=== PATIENT | female | born 1985 | race Two or more races ===

== ENCOUNTER 2025-05-19 13:27 | Emergency (ER) | payer OTHER ==
[~2025-05-19] VITALS: Ht 167.6 cm; Wt 75.7 kg
[2025-05-19] MEDS ORDERED: GUAIFENESIN 200 MG/10 ML BLIST.PACK PO ONE (14:00)
[2025-05-19] MEDS ORDERED: ACETAMINOPHEN 500 MG GEL..CAP PO ONE (14:00)
[2025-05-19 15:34] LABS: BASO % 0.3 % (0.1-1.2); EOS # 0.06 (0.04-0.54); HEMATOCRIT 34.4 % (34.1-44.9); HEMOGLOBIN 12.3 g/dL (11.2-15.7); LYMPH # 0.48 (1.18-3.74); LYMPH % 7.6 % (19.3-53.1); MEAN CORPUSCULAR HEMOGLOBIN 29.7 pg (25.6-32.2); MONO # 0.59 (0.24-0.82); MONO % 9.4 % (4.7-12.5); NEUT # 5.11 (1.56-6.13); NEUT % 81.4 % (34.0-71.1); PLATELET COUNT 202 K/uL (163-369); RED BLOOD COUNT 4.14 M/uL (3.93-5.22); RED CELL DISTRIBUTION WIDTH 12.5 % (11.6-14.4)
[2025-05-19 15:56] LABS: INFLUENZA A AG NEGATIVE (NEGATIVE); INFLUENZA B AG NEGATIVE (NEGATIVE)
[2025-05-19 16:03] LABS: COVID-19 AG POSITIVE (NEGATIVE)
[2025-05-19] MEDS ORDERED: ACETAMINOPHEN500 M1 PO (17:15)
[2025-05-19] MEDS ORDERED: PAXLOVID 300-11 EAC1 PO (17:15)
[2025-05-19] MEDS ORDERED: GILTUSS COUGH-118 M1 PO (17:15)
== END 2025-05-19 17:19 | disposition home or self-care (01) ==
LOC: ER 13:27
PROVIDERS: General Practice
DX: U07.1 COVID-19 (principal); R05.9 Cough, unspecified